=== PATIENT | male | born 1980 | race Caucasian/White ===

== ENCOUNTER 2022-09-04 16:24 | Emergency (ER) | payer OTHER ==
[2022-09-04 16:39] VITALS: BP 146/96; PULSE 90; RESP 16; TEMP 98.3; BMI 38.0
[2022-09-04] MEDS ORDERED: ACETAMINOPHEN 325 MG TABLET (FP) PO ONE (17:50)
[2022-09-04] MEDS ORDERED: LIDOCAINE 5% TOPICAL PATCH TP ONE (17:50)
[2022-09-04] MEDS ORDERED: METHOCARBAMOL 500 MG TABLET PO ONE (17:50)
[2022-09-04] MEDS ORDERED: KETOROLAC TROMETHAMINE 30 MG/1 ML VIAL IM ONE (17:51)
[2022-09-05] MEDS ORDERED: LIDOCAINE PATCH REMOVAL MC SCH (06:00)
== END 2022-09-04 19:21 | disposition home or self-care (01) ==
LOC: JER 16:24
PROC: 3E0233Z Introduction of Anti-inflammatory into Muscle, Percutaneous Approach (ICD-10-PCS; principal; 2022-09-04)
DX: M54.50 Low back pain, unspecified (principal)
CPT/HCPCS: 96372; 99284-25